=== PATIENT | female | born 1995 | race Caucasian/White ===

== ENCOUNTER 2022-11-03 15:55 | Emergency (ER) | payer OTHER, SELFPAY ==
[2022-11-03 15:59] VITALS: BP 138/83; PULSE 76; RESP 16; TEMP 37.3; O2SAT 99; BMI 35.8
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
[2022-11-03] MEDS: METHOCARBAMOL 500 MG TABLET 750 MG PO (17:38)
[2022-11-03] MEDS: KETOROLAC TROMETHAMINE 10 MG TABLET PO (17:39)
[2022-11-03 18:28] VITALS: BP 100/70; PULSE 91; RESP 18; O2SAT 99
== END 2022-11-03 18:31 | disposition home or self-care (01) ==
PROVIDERS: Emergency Provider Emergency Medicine; PCP Family Medicine
DX: S13.9XXA Sprain of joints and ligaments of unspecified parts of neck, initial encounter (principal); S46.912A Strain of unspecified muscle, fascia and tendon at shoulder and upper arm level, left arm, initial encounter; V43.52XA Car driver injured in collision with other type car in traffic accident, initial encounter; F17.210 Nicotine dependence, cigarettes, uncomplicated
CPT/HCPCS: 72040; 73030; 99283